=== PATIENT | male | born 1960 | race Caucasian/White ===

== ENCOUNTER 2017-11-27 17:18 | Emergency (ER) | payer OTHER ==
[2017-11-27 17:41] VITALS: BP 128/88
--- NOTE | 2017-11-27 17:51 | UC ---
Lower Extremity/Ankle HPI - HPI Summary HPI Summary: stepped on a nail around 10:30am today. it pierced his boot and poked his R foot. it was a new nail and was whole upon removal. comes in for a tetanus shot. denies pain and FB sensation. - History of Current Complaint Stated Complaint: STEPPED ON NAIL (WC) Time Seen by Provider: 11/27/17 17:33 Hx Obtained From: Patient Onset/Duration: Sudden Onset Pain Intensity: 0 Aggravating Factor(s): Nothing Able to Bear Weight: Yes Related History: Occupational Injury - Allergies/Home Medications Allergies/Adverse Reactions: Allergies Allergy/AdvReac Type Severity Reaction Status Date / Time No Known Allergies Allergy Verified 11/27/17 17:40 Home Medications: Home Medications Dutasteride 0.5 mg PO DAILY 11/27/17 [History Confirmed 11/27/17] Lisinopril 10 mg PO DAILY 11/27/17 [History Confirmed 11/27/17] Simvastatin 20 mg PO DAILY 11/27/17 [History Confirmed 11/27/17] PMH/Surg Hx/FS Hx/Imm Hx Endocrine History: Dyslipidemia Cardiovascular History: Hypertension - Surgical History Surgical History: None - Family History Known Family History: Positive: Hypertension - Social History Occupation: Employed Full-time Alcohol Use: Rare Substance Use Type: None Smoking Status (MU): Never Smoked Tobacco - Immunization History Hx Tetanus, Diphtheria Vaccination: No Vaccination Up to Date: Yes Review of Systems Constitutional: Negative Skin: Other - PW base R great toe Eyes: Negative ENT: Negative Respiratory: Negative Cardiovascular: Negative Gastrointestinal: Negative Genitourinary: Negative Motor: Negative Neurovascular: Negative Musculoskeletal: Negative Neurological: Negative Psychological: Negative Is Patient Immunocompromised?: No All Other Systems Reviewed And Are Negative: Yes Physical Exam Triage Information Reviewed: Yes Appearance: Well-Appearing Vital Signs: Initial Vital Signs Temp 98.2 F 11/27/17 17:36 Pulse 73 11/27/17 17:36 Resp 16 11/27/17 17:36 BP 128/88 11/27/17 17:36 Pulse Ox 99 11/27/17 17:36 Vital Signs Reviewed: Yes Eyes: Positive: Conjunctiva Clear ENT: Positive: Normal ENT inspection Neck: Positive: Supple, Nontender Respiratory: Positive: Lungs clear, Normal breath sounds Cardiovascular: Positive: RRR, No Murmur Abdomen Description: Positive: Nontender, No Organomegaly, Soft Bowel Sounds: Positive: Present Musculoskeletal: Positive: ROM Intact Neurological: Positive: Alert Psychological: Positive: Age Appropriate Behavior Skin Exam: Normal, Other - R foot: 4mm linear wound to base of R great toe on plantar surface. Small pale flap withdirt noted. Non tender, no erythema or swelling. Foot has full s/v/m function. Procedures - Procedure Summary Procedure Summary: Tiny devitalized flap lifted and trimmed off. It was tattooed with dirt. Wound cleaned with soak and water. Full depth appreciated and no additional FB/dirt. Site pink. No bleeding. pt tolerated well. nursing applied bacitracin and a band aide. Lower Extremity Course/Dx - Course Course Of Treatment: depth of wound appreciated and no concern for bony injury. given dirt and nature of wound, will tx with augmentin. tetanus updated. - Differential Dx/Diagnosis Provider Diagnoses: PW R foot Discharge - Sign-Out/Discharge Documenting (check all that apply): Patient Departure - Discharge Plan Condition: Stable Disposition: HOME Prescriptions: Amoxicillin/Clavulanate TAB* [Augmentin TAB 875*] 875 mg PO BID #14 tab Patient Education Materials: Puncture Wound (ED) Referrals: David Willard DO [Primary Care Provider] - 7 Days - Billing Disposition and Condition Condition: STABLE Disposition: Home
[2017-11-27] MEDS ORDERED: Tetan/Diph/Pertus SYR(Tdap)* 0.5 ML SYR(BOOSTRIX) use SYR IM ONE (18:00)
== END 2017-11-27 18:12 | disposition home or self-care (01) ==
LOC: UCCORT 17:18
DX: S91.331A Puncture wound without foreign body, right foot, initial encounter (principal); W22.8XXA Striking against or struck by other objects, initial encounter; Y93.9 Activity, unspecified; Y92.9 Unspecified place or not applicable; I10 Essential (primary) hypertension; E78.5 Hyperlipidemia, unspecified
CPT/HCPCS: 90471; 90715; 99202; G0463